=== PATIENT | male | born 1935 | race Caucasian/White ===

== ENCOUNTER 2019-10-23 21:32 | Emergency (ER) | payer OTHER ==
[~2019-10-23] VITALS: Ht 167.6 cm; Wt 80.7 kg
[2019-10-23 22:05] LABS: URINE BILIRUBIN NEGATIVE (Negative); URINE BLOOD 1+ (Negative); URINE CLARITY CLEAR; URINE COLOR YELLOW; URINE GLUCOSE-RANDOM NEGATIVE (Negative); URINE KETONES NEGATIVE (Negative); URINE LEUKOCYTES-REFLEX NEGATIVE (Negative); URINE NITRITE-REFLEX NEGATIVE (Negative); URINE PROTEIN NEGATIVE (Negative); URINE SPECIFIC GRAVITY >= 1.030 (1.005-1.030); URINE UROBILINOGEN 0.2 E.U./dl (0.2-1.0)
[2019-10-23 22:16] LABS: ABSOLUTE BASOPHILS 0.1 thou/uL (0.0-0.2); ABSOLUTE EOSINOPHILS 0.1 thou/uL (0.0-0.7); ABSOLUTE LYMPHOCYTES 1.4 thou/uL (0.8-5.3); ABSOLUTE MONOCYTES 0.7 thou/uL (0.0-1.2); ABSOLUTE NEUTROPHILS 5.6 thou/uL (1.6-8.1); BASOPHILS 0.7 %; EOSINOPHILS 1.7 %; HEMATOCRIT 42.7 % (42.0-52.0); HEMOGLOBIN 14.7 gm/dL (14.0-18.0); MCH 32.1 pg (26.0-34.0); MCHC 34.3 g/dL (28.0-37.0); MCV 93.6 fL (80.0-100.0); MONOCYTES 9.3 %; MPV 8.4 fl. (7.2-11.1); NUCLEATED RBCS 0 /100WBC; PLATELET COUNT* 134 thou/uL (150-400); POLYS 70.3 %; RBC 4.57 mil/uL (4.50-6.00); RDW-CV 13.7 % (10.5-14.5)
[2019-10-23 22:24] LABS: HYALINE CASTS 0-3 Few /LPF (None Seen); MUCUS None Seen strn/LPF (None Seen); SQUAMOUS 4-10 Moderate /LPF (0-3); URINE RBC 0-2 Rare /HPF (0-2); URINE WBC-REFLEX 0-5 Rare /HPF (0-5)
[2019-10-23 22:25] LABS: BACTERIA-REFLEX 1-9 Few /HPF (None Seen); CRYSTALS None Seen /LPF (None Seen); YEAST-REFLEX Present (None Seen)
[2019-10-23 22:26] LABS: CALCIUM 8.1 mg/dL (8.5-10.1); CREATININE 1.5 mg/dL (0.6-1.3)
[2019-10-24] MEDS ORDERED: CIPROFLOXACIN500 M1 PO (00:11)
[2019-10-24] MEDS ORDERED: LORCET 5-325 M1 EACH PO (00:11)
[2019-10-24] MEDS ORDERED: FLAGYL500 M1 PO (00:11)
[2019-10-24] MEDS ORDERED: ZOFRAN ODT4 MG PO (00:11)
[2019-10-24 00:35] VITALS: BP 154/80
== END 2019-10-24 00:36 | disposition home or self-care (01) ==
LOC: M.ERS 21:32
PROVIDERS: Emergency Medicine
DX: K57.32 Diverticulitis of large intestine without perforation or abscess without bleeding (principal)

== ENCOUNTER 2019-12-20 17:42 | Emergency (ER) | payer OTHER ==
[~2019-12-20] VITALS: Ht 167.6 cm; Wt 72.6 kg
[~2019-12-20 17:42] MED LIST: CIPROFLOXACIN500 M1 PO; FLAGYL500 M1 PO; LORCET 5-325 M1 EACH PO; ZOFRAN ODT4 MG PO
[2019-12-20 19:14] LABS: ABSOLUTE EOSINOPHILS 0.2 thou/uL (0.0-0.7); ABSOLUTE LYMPHOCYTES 2.1 thou/uL (0.8-5.3); ABSOLUTE MONOCYTES 0.6 thou/uL (0.0-1.2); ABSOLUTE NEUTROPHILS 3.9 thou/uL (1.6-8.1); BASOPHILS 0.5 %; EOSINOPHILS 2.6 %; HEMATOCRIT 44.6 % (42.0-52.0); HEMOGLOBIN 15.3 gm/dL (14.0-18.0); LYMPHOCYTES 30.7 %; MCH 31.8 pg (26.0-34.0); MCHC 34.2 g/dL (28.0-37.0); MONOCYTES 8.8 %; MPV 8.3 fl. (7.2-11.1); NUCLEATED RBCS 0 /100WBC; PLATELET COUNT* 154 thou/uL (150-400); POLYS 57.4 %; RDW-CV 14.3 % (10.5-14.5); WBC 6.8 thou/uL (4.0-11.0)
[2019-12-20 19:23] LABS: CALCIUM 9.3 mg/dL (8.5-10.1); CREATININE 1.5 mg/dL (0.6-1.3); POTASSIUM 4.1 mmol/L (3.5-5.1)
[2019-12-20 19:28] LABS: ALBUMIN 3.9 g/dL (3.4-5.0); TOTAL BILIRUBIN 0.4 mg/dL (<0.1-1.0); TOTAL PROTEIN 7.3 g/dL (6.4-8.2)
[2019-12-20 20:13] LABS: URINE BILIRUBIN NEGATIVE (Negative); URINE BLOOD TRACE (Negative); URINE CLARITY CLEAR; URINE COLOR YELLOW; URINE GLUCOSE-RANDOM NEGATIVE (Negative); URINE KETONES NEGATIVE (Negative); URINE LEUKOCYTES-REFLEX NEGATIVE (Negative); URINE NITRITE-REFLEX NEGATIVE (Negative); URINE PROTEIN NEGATIVE (Negative); URINE SPECIFIC GRAVITY >= 1.030 (1.005-1.030); URINE UROBILINOGEN 0.2 E.U./dl (0.2-1.0)
[2019-12-20] MEDS ORDERED: MIRALAX119 GM PO (20:59)
[2019-12-20] MEDS ORDERED: CITRATE OF MAG296 M1 PO (20:59)
[2019-12-20] MEDS ORDERED: TYLENOL WITH CO1 TA1 PO (21:03)
[2019-12-20 21:13] VITALS: BP 135/72
== END 2019-12-20 21:14 | disposition home or self-care (01) ==
LOC: M.ERS 17:42
PROVIDERS: Physician Assistant
DX: N32.0 Bladder-neck obstruction (principal)

== ENCOUNTER 2020-08-08 00:15 | Observation (INO) | payer OTHER ==
[~2020-08-08] VITALS: Ht 167.6 cm; Wt 72.6 kg
--- NOTE | ~2020-08-08 | EMS ---
[address] [address] EMS Patient Care Report Name: DAYNE WILLIAMSON Room: [address] Eunice Larson#: [id number] Admission: 08/08/20 Attend Phys: Gasper Lamas MD Discharge: 08/08/20 Date of : 31 Report #: [id number] THIS REPORT FOR: //name// Report Transmitted: 08/09/2020 14:11 EMS Care Summary [facility] Lee CROW Incident [id number] @ 08/07/2020 23:32 Incident Location [address] [place], [place] [id number] Patient Dayne Williamson Male, 84 Years 1935 Patient Address [address] [place] [address] Patient Allergies No known allergies, Chief Complaint Vertigo Disposition Transported No Lights/[place] Dispatch Reason Sick Person Transported To [facility] Narrative on scene of a 84 y/o male c/o dizziness and vertigo type symptoms. pt found sitting in chair at home a/ox4 in mild distress. per pt the symptoms started about 1 hour [facility] of [facility]. [facility] on scene assessing. fsbs checked and pt then assisted to [place] and secured in position of comfort. pt moved to micu and vitals checked and monitor showed NSR. pt transported to [place] c-2. en route pt reassessed. pt denies any c/p SOB abd pain N/V headache. pt has equal speech coach and no facial droop noted. during transport pt related that his dizziness was coming back while micu was moving. secondary had no other complaints noted. vitals rechecked with no changes noted. arrive [place] transfer to [facility] [place] [id number] EMS Patient Care Report Name: DAYNE WILLIAMSON Room: [address] Eunice Larson#: [id number] Admission: 08/08/20 Attend Phys: Gasper Lamas MD Discharge: 08/08/20 Date of : 31 Report #: [id number] room 4. Initial Vitals @23:48SpO2: 96, @23:54SpO2: 96, @00:05SpO2: 96, @00:10SpO2: 97, @23:50 @23:44P: 64,R: 20,BP: 146/96, @23:54P: 62,R: 20,BP: 169/86, @00:05P: 64,R: 20,BP: 162/82, @00:10P: 64,R: 22,BP: 161/83, @23:44GCS: 15, @23:54GCS: 15, @00:05GCS: 15, @00:10GCS: 15, @23:40 @23:40Glucose: 150, Assessments @23:40MENTAL:SKIN:HEENT:LUNG SOUNDS:ABDOMEN:PELVIS//GI:EXTREMITIES:PULSE:NEURO: Impression Dizziness Procedures @23:503-Lead ECGResponse: UnchangedSucceeded Timeline 23:31,Call Received 23:31,Dispatch Notified 23:31,Psap Call 23:32,Dispatched 23:32,En Route 23:38,On Scene 23:40,At Patient 23:40,BP: / M,PULSE: ,RR: R,SPO2: Ox,ETCO2: ,BG: ,PAIN: ,GCS: , 23:40,BP: / M,PULSE: ,RR: R,SPO2: Ox,ETCO2: ,B,PAIN: ,GCS: , 23:44,BP: 146/96 M,PULSE: 64,RR: 20 R,SPO2: Ox,ETCO2: ,BG: ,PAIN: ,GCS: , 23:44,BP: / M,PULSE: ,RR: R,SPO2: Ox,ETCO2: ,BG: ,PAIN: ,GCS: 15, 23:48,BP: / M,PULSE: ,RR: R,SPO2: 96 Ox,ETCO2: ,BG: ,PAIN: ,GCS: , 23:50,Depart Scene 23:50,3-Lead ECG,Response: UnchangedSucceeded, 23:50,BP: / M,PULSE: ,RR: R,SPO2: Ox,ETCO2: ,BG: ,PAIN: ,GCS: , 23:54,BP: / M,PULSE: ,RR: R,SPO2: 96 Ox,ETCO2: ,BG: ,PAIN: ,GCS: , [place] [id number] EMS Patient Care Report Name: DAYNE WILLIAMSON Room: [address] Eunice M.RJaden#: [id number] Admission: 08/08/20 Attend Phys: Gasper Lamas MD Discharge: 03/17/21 Date of : 31 Report #: [id number] 23:54,BP: 169/86 M,PULSE: 62,RR: 20 R,SPO2: Ox,ETCO2: ,BG: ,PAIN: ,GCS: , 23:54,BP: / M,PULSE: ,RR: R,SPO2: Ox,ETCO2: ,BG: ,PAIN: ,GCS: 15, 00:05,BP: / M,PULSE: ,RR: R,SPO2: 96 Ox,ETCO2: ,BG: ,PAIN: ,GCS: , 00:05,BP: 162/82 M,PULSE: 64,RR: 20 R,SPO2: Ox,ETCO2: ,BG: ,PAIN: ,GCS: , 00:05,BP: / M,PULSE: ,RR: R,SPO2: Ox,ETCO2: ,BG: ,PAIN: ,GCS: 15, 00:10,BP: / M,PULSE: ,RR: R,SPO2: 97 Ox,ETCO2: ,BG: ,PAIN: ,GCS: , 00:10,BP: 161/83 M,PULSE: 64,RR: 22 R,SPO2: Ox,ETCO2: ,BG: ,PAIN: ,GCS: , 00:10,BP: / M,PULSE: ,RR: R,SPO2: Ox,ETCO2: ,BG: ,PAIN: ,GCS: 15, 00:10,At Destination 00:22,Call Closed Disclaimer v1.1 Copyright 2020 [employer] This EMS Care Summary contains data elements from the applicable legal record (which may be displayed differently). It is designed to provide pertinent information for the following purposes: continuity of care, clinical quality, and state data reporting. The complete legal record is available to ED staff and administrators of the receiving hospital in [employer] Patient Tracker. All data is provided "as is."
[~2020-08-08 00:15] MED LIST changes: +CITRATE OF MAG296 M1 PO; +MIRALAX119 GM PO; +TYLENOL WITH CO1 TA1 PO
[2020-08-08 00:20] VITALS: BP 161/76
[2020-08-08 00:58] LABS: ABSOLUTE EOSINOPHILS 0.1 thou/uL (0.0-0.7); ABSOLUTE LYMPHOCYTES 0.8 thou/uL (0.8-5.3); ABSOLUTE MONOCYTES 0.5 thou/uL (0.0-1.2); ABSOLUTE NEUTROPHILS 4.7 thou/uL (1.6-8.1); BASOPHILS 0.3 %; EOSINOPHILS 1.8 %; HEMATOCRIT 43.2 % (42.0-52.0); HEMOGLOBIN 14.3 gm/dL (14.0-18.0); LYMPHOCYTES 12.9 %; MCH 30.8 pg (26.0-34.0); MCHC 33.1 g/dL (28.0-37.0); MONOCYTES 7.5 %; MPV 7.9 fl. (7.2-11.1); NUCLEATED RBCS 0 /100WBC; PLATELET COUNT* 126 thou/uL (150-400); POLYS 77.5 %; RBC 4.64 mil/uL (4.50-6.00); RDW-CV 14.1 % (10.5-14.5); WBC 6.1 thou/uL (4.0-11.0)
[2020-08-08 01:01] LABS: CALCIUM 9.4 mg/dL (8.5-10.1); CREATININE 1.5 mg/dL (0.6-1.3); POTASSIUM 4.5 mmol/L (3.5-5.1)
[2020-08-08 01:22] LABS: URINE BILIRUBIN NEGATIVE (Negative); URINE BLOOD TRACE (Negative); URINE CLARITY CLEAR; URINE COLOR YELLOW; URINE GLUCOSE-RANDOM NEGATIVE (Negative); URINE KETONES NEGATIVE (Negative); URINE LEUKOCYTES-REFLEX NEGATIVE (Negative); URINE NITRITE-REFLEX NEGATIVE (Negative); URINE PROTEIN NEGATIVE (Negative); URINE SPECIFIC GRAVITY 1.025 (1.005-1.030); URINE UROBILINOGEN 0.2 E.U./dl (0.2-1.0)
--- NOTE | 2020-08-08 02:53 | NUR ---
PT TAKEN TO MRI AT THIS TIME.
[2020-08-08 04:48] VITALS: BP 145/76
[2020-08-08 08:00] VITALS: BP 145/74
--- NOTE | 2020-08-08 09:37 | EKG ---
[place] [address] ELECTROCARDIOGRAM REPORT Name: BENIGNO ANGELURICDeuce Harden [address] [id number] Admission: 08/08/20 Attend Phys: Gasper Lamas, Discharge: Date of : 31 Date of Service: 08/08/20 0021 Report #: [id number] THIS REPORT FOR: //name// [facility] ED Test Date: 2020-08-08 Test Time: 00:21:51 Pat Name: DAYNE ANGEL Department: Room: [facility] Gender: M Long Term Care Pharmacist: MR : 1935 Requested By: Catalina Edmonds Order Number: [id number] MD: Demario Delacruz Measurements Intervals [place] Rate: 63 P: 21 NM: 184 QRS: 5 QRSD: 105 T: 33 QT: 425 QTc: 436 Interpretive Statements Sinus rhythm Abnormal R-wave progression, early transition Baseline wander in lead(s) V6 No previous ECG available for comparison Electronically Signed On 08-08-2020 9:37:42 CDT by Demario Delacruz [email or web address] <ELECTRONICALLY SIGNED> By: Demario Delacruz MD, FAC 08/08/20 0937 002 002 Demario Delacruz MD, [facility] /EPI
[2020-08-08 11:46] LABS: ALBUMIN 3.6 g/dL (3.4-5.0); CALCIUM 9.4 mg/dL (8.5-10.1); CREATININE 1.5 mg/dL (0.6-1.3); POTASSIUM 4.2 mmol/L (3.5-5.1); TOTAL BILIRUBIN 0.6 mg/dL (<0.1-1.0); TOTAL PROTEIN 7.3 g/dL (6.4-8.2)
[2020-08-08 12:11] VITALS: BP 134/76
--- NOTE | 2020-08-08 12:39 | NUR ---
Pt is A&O. Resides at home with . Independent. Pt states that he has 2 wc and 2 walkers at home, that people have given him through the years, Pt does not currently use any DME. No hx of HH. No hx of SNF. Goal is home at dc, no needs anticipated. Anticipate dc either later today or tomorrow.
--- NOTE | 2020-08-08 13:25 | NUR ---
I have reviewed the documentation by ANICETO BEASLEY from 08/08/20 to 08/08/20 and I concur with it. AMADOU CURIEL
[2020-08-08 13:32] VITALS: BP 134/76
[2020-08-08 22:06] LABS: GLYCOHEMOGLOBIN (HGB A1C) 5.9 % (4.8-5.6)
== END 2020-08-08 14:15 | disposition home or self-care (01) ==
LOC: M.ERS 00:15 → M.2W 01:50 → M.TBA-ER 01:50 → M.2W 05:01
PROVIDERS: Emergency Medicine; Internal Medicine; ADMIT Internal Medicine; ATTEND Internal Medicine
DX: R42 Dizziness and giddiness (principal); N17.9 Acute kidney failure, unspecified; E86.0 Dehydration; Z79.899 Other long term (current) drug therapy; Z20.822 Contact with and (suspected) exposure to COVID-19; Z23 Encounter for immunization